=== PATIENT | male | born 2000 | race Caucasian/White ===

== ENCOUNTER 2023-05-29 17:30 | Emergency (ER) | payer SELFPAY | END 2023-05-29 18:02 | LOC: ERS 17:30 | DX: Z02.89 Encounter for other administrative examinations (principal); F32.9 Major depressive disorder, single episode, unspecified; F17.290 Nicotine dependence, other tobacco product, uncomplicated; Z79.899 Other long term (current) drug therapy | CPT/HCPCS: 99283 ==